=== PATIENT | female | born 1975 | race Caucasian/White ===

== ENCOUNTER → 2023-11-04 18:40 | Outpatient (REF) | payer BC, SELFPAY | LOC: WDC 18:40 | PROVIDERS: ATTENDING PHYSICIAN Nurse Practitioner Adult Health; FAMILY PHYSICIAN Family Medicine | DX: Z12.31 Encounter for screening mammogram for malignant neoplasm of breast (principal) | CPT/HCPCS: 77063; 77067 ==

== ENCOUNTER → 2024-11-05 17:55 | Outpatient (REF) | payer BC, SELFPAY | LOC: WDC 17:55 | PROVIDERS: ATTENDING PHYSICIAN Nurse Practitioner Adult Health; FAMILY PHYSICIAN Family Medicine | DX: Z12.31 Encounter for screening mammogram for malignant neoplasm of breast (principal); Z80.41 Family history of malignant neoplasm of ovary; R92.2 Inconclusive mammogram | CPT/HCPCS: 77063; 77067 ==

== ENCOUNTER → 2025-03-11 17:33 | Outpatient (REF) | payer BC, SELFPAY | LOC: RAD 17:33 | PROVIDERS: ATTENDING PHYSICIAN Nurse Practitioner Adult Health; FAMILY PHYSICIAN Family Medicine | DX: N93.9 Abnormal uterine and vaginal bleeding, unspecified (principal) | CPT/HCPCS: 76830; 76856 ==

== ENCOUNTER → 2025-04-21 18:32 | Outpatient (REF) | payer BC, SELFPAY | LOC: MRI 18:32 | PROVIDERS: ATTENDING PHYSICIAN Nurse Practitioner Adult Health; FAMILY PHYSICIAN Family Medicine | DX: N83.209 Unspecified ovarian cyst, unspecified side (principal); Z80.41 Family history of malignant neoplasm of ovary; R97.1 Elevated cancer antigen 125 [CA 125] | CPT/HCPCS: 72197; A9575 ==